=== PATIENT | female | born 1945 | race American Indian/Alaskan Native ===

== ENCOUNTER 2017-05-14 08:04 | Day surgery (SDC) | payer OTHER ==
[2017-05-12 12:05] LABS: BASOPHILS ABSOLUTE AUTO 0.02 K/mm3 (0.00-0.23); BASOPHILS PERCENT AUTO 1 % (0-2); EOSINOPHILS ABSOLUTE AUTO 0.08 K/mm3 (0.00-0.68); EOSINOPHILS PERCENT AUTO 4 % (0-6); Hematocrit 19.7 % (33.0-51.0); Hemoglobin 6.5 g/dL (11.5-16.0); IMMATURE GRAN ABSOLUTE AUTO 0.01 K/mm3 (0.00-0.10); IMMATURE GRAN PERCENT AUTO 1 % (0-1); LYMPHOCYTES ABSOLUTE AUTO 0.58 K/mm3 (0.84-5.20); LYMPHOCYTES PERCENT AUTO 27 % (21-46); MONOCYTES ABSOLUTE AUTO 0.12 K/mm3 (0.16-1.47); MONOCYTES PERCENT AUTO 6 % (4-13); Mean Corpuscular HGB 28.8 pg (26.0-34.0); NEUTROPHILS ABSOLUTE AUTO 1.35 K/mm3 (1.96-9.15); NEUTROPHILS PERCENT AUTO 62 % (41-73); Platelet Count 364 K/mm3 (150-400); Red Blood Cell Count 2.26 M/mm3 (3.80-5.20); White Blood Cell Count 2.16 K/mm3 (4.00-11.30)
[2017-05-12 12:10] LABS: Mean Corpuscular Volume 87 fL (80-100)
[~2017-05-14 08:04] MED LIST: ASPI81CH PO; Aspirin EC81 MG PO; CIPR500 PO; IBUP800 PO; Lisinopril2.5 MG PO; METF500 PO; METF500C PO; METR500 PO
== END 2017-05-14 23:13 | disposition home or self-care (01) ==
LOC: ATC 08:04
PROVIDERS: Internal Medicine Hematology & Oncology
PROC: 30233N1 Transfusion of Nonautologous Red Blood Cells into Peripheral Vein, Percutaneous Approach (ICD-10-PCS; principal; 2017-05-14)
DX: C94.6 Myelodysplastic disease, not elsewhere classified (principal); D53.9 Nutritional anemia, unspecified; D69.59 Other secondary thrombocytopenia
CPT/HCPCS: 36415; 36430; 85025; 86850; 86900; 86901; 86923; J7050; P9016

== ENCOUNTER 2017-06-11 00:59 | Day surgery (SDC) | payer OTHER ==
[2017-06-10 10:39] LABS: BASOPHILS ABSOLUTE AUTO 0.02 K/mm3 (0.00-0.23); BASOPHILS PERCENT AUTO 1 % (0-2); EOSINOPHILS ABSOLUTE AUTO 0.14 K/mm3 (0.00-0.68); EOSINOPHILS PERCENT AUTO 7 % (0-6); Hematocrit 21.8 % (33.0-51.0); Hemoglobin 6.9 g/dL (11.5-16.0); IMMATURE GRAN ABSOLUTE AUTO 0.01 K/mm3 (0.00-0.10); IMMATURE GRAN PERCENT AUTO 1 % (0-1); LYMPHOCYTES ABSOLUTE AUTO 0.56 K/mm3 (0.84-5.20); LYMPHOCYTES PERCENT AUTO 27 % (21-46); MONOCYTES ABSOLUTE AUTO 0.21 K/mm3 (0.16-1.47); MONOCYTES PERCENT AUTO 10 % (4-13); Mean Corpuscular HGB 28.5 pg (26.0-34.0); Mean Corpuscular HGB Conc 31.7 g/dL (31.5-36.5); Mean Corpuscular Volume 90 fL (80-100); Mean Platelet Volume 10.8 fL (9.1-12.4); NEUTROPHILS ABSOLUTE AUTO 1.12 K/mm3 (1.96-9.15); NEUTROPHILS PERCENT AUTO 54 % (41-73); Platelet Count 292 K/mm3 (150-400); RDW Coefficient Variation 14.2 % (11.7-14.2); RDW Standard Deviation 47.3 fL (35.1-46.3); Red Blood Cell Count 2.42 M/mm3 (3.80-5.20); White Blood Cell Count 2.06 K/mm3 (4.00-11.30)
[2017-06-10 11:20] LABS: BASOPHILS PERCENT MAN 0 % (0-2); EOSINOPHILS PERCENT MAN 10 % (0-6); LYMPHOCYTES ABSOLUTE MAN 0.39 K/mm3 (0.84-5.20); LYMPHOCYTES PERCENT MAN 19 % (21-46); MONOCYTES ABSOLUTE MAN 0.06 K/mm3 (0.16-1.47); MONOCYTES PERCENT MAN 3 % (4-13); SEG NEUTROPHILS PERCENT MAN 68 % (41-73); TOTAL CELLS COUNTED 100
== END 2017-06-11 23:07 | disposition home or self-care (01) ==
LOC: ATC 00:59
PROVIDERS: Internal Medicine Hematology & Oncology
PROC: 30233N1 Transfusion of Nonautologous Red Blood Cells into Peripheral Vein, Percutaneous Approach (ICD-10-PCS; principal; 2017-06-11)
DX: C94.6 Myelodysplastic disease, not elsewhere classified (principal); D69.59 Other secondary thrombocytopenia; D53.9 Nutritional anemia, unspecified
CPT/HCPCS: 36415; 36430; 85025; 86850; 86900; 86901; 86923; J7050; P9016

== ENCOUNTER 2017-06-27 00:51 | Day surgery (SDC) | payer OTHER | END 2017-06-27 12:37 | disposition home or self-care (01) | LOC: ATC 00:51 | PROC: 30233N1 Transfusion of Nonautologous Red Blood Cells into Peripheral Vein, Percutaneous Approach (ICD-10-PCS; principal; 2017-06-27) | DX: D53.9 Nutritional anemia, unspecified (principal); D46.9 Myelodysplastic syndrome, unspecified; D63.8 Anemia in other chronic diseases classified elsewhere; E11.9 Type 2 diabetes mellitus without complications; I10 Essential (primary) hypertension; Z79.899 Other long term (current) drug therapy; Z79.84 Long term (current) use of oral hypoglycemic drugs; Z86.12 Personal history of poliomyelitis; Z87.891 Personal history of nicotine dependence | CPT/HCPCS: 36430; 86850; 86900; 86901; 86923; J7030; P9016 ==

== ENCOUNTER 2017-07-16 00:23 | Day surgery (SDC) | payer OTHER ==
[2017-07-14 12:14] LABS: BASOPHILS ABSOLUTE AUTO 0.02 K/mm3 (0.00-0.23); BASOPHILS PERCENT AUTO 1 % (0-2); EOSINOPHILS ABSOLUTE AUTO 0.12 K/mm3 (0.00-0.68); EOSINOPHILS PERCENT AUTO 5 % (0-6); Hematocrit 20.5 % (33.0-51.0); Hemoglobin 6.5 g/dL (11.5-16.0); IMMATURE GRAN ABSOLUTE AUTO 0.01 K/mm3 (0.00-0.10); IMMATURE GRAN PERCENT AUTO 0 % (0-1); LYMPHOCYTES ABSOLUTE AUTO 0.71 K/mm3 (0.84-5.20); LYMPHOCYTES PERCENT AUTO 32 % (21-46); MONOCYTES ABSOLUTE AUTO 0.32 K/mm3 (0.16-1.47); MONOCYTES PERCENT AUTO 14 % (4-13); Mean Corpuscular HGB 28.1 pg (26.0-34.0); Mean Corpuscular HGB Conc 31.7 g/dL (31.5-36.5); Mean Corpuscular Volume 89 fL (80-100); Mean Platelet Volume 11.5 fL (9.1-12.4); NEUTROPHILS ABSOLUTE AUTO 1.06 K/mm3 (1.96-9.15); NEUTROPHILS PERCENT AUTO 47 % (41-73); Platelet Count 248 K/mm3 (150-400); RDW Coefficient Variation 13.7 % (11.7-14.2); RDW Standard Deviation 44.8 fL (35.1-46.3); Red Blood Cell Count 2.31 M/mm3 (3.80-5.20); White Blood Cell Count 2.24 K/mm3 (4.00-11.30)
== END 2017-07-16 17:50 | disposition home or self-care (01) ==
LOC: LAB 00:23
PROVIDERS: Internal Medicine Hematology & Oncology
PROC: 30233N1 Transfusion of Nonautologous Red Blood Cells into Peripheral Vein, Percutaneous Approach (ICD-10-PCS; principal; 2017-07-16)
DX: C94.6 Myelodysplastic disease, not elsewhere classified (principal); D53.9 Nutritional anemia, unspecified; D69.59 Other secondary thrombocytopenia
CPT/HCPCS: 36415; 36430; 85025; 86850; 86900; 86901; 86923; J7030; P9016

== ENCOUNTER 2017-07-28 09:34 | Day surgery (SDC) | payer OTHER ==
[2017-07-28 08:22] LABS: BASOPHILS ABSOLUTE AUTO 0.02 K/mm3 (0.00-0.23); BASOPHILS PERCENT AUTO 1 % (0-2); EOSINOPHILS ABSOLUTE AUTO 0.13 K/mm3 (0.00-0.68); EOSINOPHILS PERCENT AUTO 6 % (0-6); Hematocrit 21.6 % (33.0-51.0); Hemoglobin 6.7 g/dL (11.5-16.0); IMMATURE GRAN ABSOLUTE AUTO 0.01 K/mm3 (0.00-0.10); IMMATURE GRAN PERCENT AUTO 1 % (0-1); LYMPHOCYTES ABSOLUTE AUTO 0.65 K/mm3 (0.84-5.20); LYMPHOCYTES PERCENT AUTO 32 % (21-46); MONOCYTES ABSOLUTE AUTO 0.25 K/mm3 (0.16-1.47); MONOCYTES PERCENT AUTO 12 % (4-13); Mean Corpuscular HGB 27.9 pg (26.0-34.0); Mean Corpuscular Volume 90 fL (80-100); Mean Platelet Volume 11.8 fL (9.1-12.4); NEUTROPHILS ABSOLUTE AUTO 0.97 K/mm3 (1.96-9.15); NEUTROPHILS PERCENT AUTO 48 % (41-73); Platelet Count 296 K/mm3 (150-400); RDW Coefficient Variation 13.7 % (11.7-14.2); RDW Standard Deviation 45.4 fL (35.1-46.3); White Blood Cell Count 2.03 K/mm3 (4.00-11.30)
== END 2017-07-28 18:10 | disposition home or self-care (01) ==
LOC: LAB 09:34
PROVIDERS: Internal Medicine Hematology & Oncology
DX: D53.9 Nutritional anemia, unspecified (principal); C94.6 Myelodysplastic disease, not elsewhere classified; D69.59 Other secondary thrombocytopenia
CPT/HCPCS: 36415; 36430; 85025; 86850; 86900; 86901; 86923; J7030; P9016

== ENCOUNTER 2017-08-18 10:40 | Day surgery (SDC) | payer OTHER ==
[2017-08-18 08:47] LABS: BASOPHILS ABSOLUTE AUTO 0.01 K/mm3 (0.00-0.23); BASOPHILS PERCENT AUTO 1 % (0-2); EOSINOPHILS ABSOLUTE AUTO 0.06 K/mm3 (0.00-0.68); EOSINOPHILS PERCENT AUTO 4 % (0-6); Hematocrit 19.6 % (33.0-51.0); Hemoglobin 6.1 g/dL (11.5-16.0); IMMATURE GRAN PERCENT AUTO 0 % (0-1); LYMPHOCYTES ABSOLUTE AUTO 0.59 K/mm3 (0.84-5.20); LYMPHOCYTES PERCENT AUTO 35 % (21-46); MONOCYTES PERCENT AUTO 18 % (4-13); Mean Corpuscular HGB 27.1 pg (26.0-34.0); Mean Corpuscular HGB Conc 31.1 g/dL (31.5-36.5); Mean Corpuscular Volume 87 fL (80-100); Mean Platelet Volume 11.2 fL (9.1-12.4); NEUTROPHILS ABSOLUTE AUTO 0.72 K/mm3 (1.96-9.15); NEUTROPHILS PERCENT AUTO 43 % (41-73); Platelet Count 216 K/mm3 (150-400); RDW Coefficient Variation 13.5 % (11.7-14.2); Red Blood Cell Count 2.25 M/mm3 (3.80-5.20); White Blood Cell Count 1.68 K/mm3 (4.00-11.30)
== END 2017-08-18 17:50 | disposition home or self-care (01) ==
LOC: LAB 10:40
PROVIDERS: Internal Medicine Hematology & Oncology
PROC: 30233N1 Transfusion of Nonautologous Red Blood Cells into Peripheral Vein, Percutaneous Approach (ICD-10-PCS; principal; 2017-08-18)
DX: C94.6 Myelodysplastic disease, not elsewhere classified (principal); D53.9 Nutritional anemia, unspecified; D69.59 Other secondary thrombocytopenia
CPT/HCPCS: 36415; 36430; 85025; 86850; 86900; 86901; 86923; J7030; P9016

== ENCOUNTER 2017-08-25 13:09 | Day surgery (SDC) | payer OTHER ==
[2017-08-25 11:12] LABS: BASOPHILS ABSOLUTE AUTO 0.01 K/mm3 (0.00-0.23); BASOPHILS PERCENT AUTO 1 % (0-2); EOSINOPHILS ABSOLUTE AUTO 0.14 K/mm3 (0.00-0.68); EOSINOPHILS PERCENT AUTO 7 % (0-6); Hematocrit 22.9 % (33.0-51.0); Hemoglobin 7.3 g/dL (11.5-16.0); IMMATURE GRAN ABSOLUTE AUTO 0.01 K/mm3 (0.00-0.10); IMMATURE GRAN PERCENT AUTO 1 % (0-1); LYMPHOCYTES ABSOLUTE AUTO 0.64 K/mm3 (0.84-5.20); LYMPHOCYTES PERCENT AUTO 30 % (21-46); MONOCYTES PERCENT AUTO 14 % (4-13); Mean Corpuscular HGB 29.2 pg (26.0-34.0); Mean Corpuscular HGB Conc 31.9 g/dL (31.5-36.5); Mean Platelet Volume 11.2 fL (9.1-12.4); NEUTROPHILS ABSOLUTE AUTO 1.07 K/mm3 (1.96-9.15); NEUTROPHILS PERCENT AUTO 49 % (41-73); Platelet Count 228 K/mm3 (150-400); RDW Standard Deviation 50.9 fL (35.1-46.3); White Blood Cell Count 2.17 K/mm3 (4.00-11.30)
[2017-08-25 11:16] LABS: Mean Corpuscular Volume 92 fL (80-100)
[2017-08-25] MEDS ORDERED: Percocet 5-3251 EACH PO (16:44)
== END 2017-08-25 18:10 | disposition home or self-care (01) ==
LOC: ATC 13:09
PROVIDERS: Internal Medicine Hematology & Oncology
DX: D46.1 Refractory anemia with ring sideroblasts (principal)
CPT/HCPCS: 36415; 36430; 85025; 86850; 86900; 86901; 86923; J7030; P9016

== ENCOUNTER 2017-09-08 13:09 | Day surgery (SDC) | payer OTHER ==
[2017-09-08 11:26] LABS: BASOPHILS ABSOLUTE AUTO 0.02 K/mm3 (0.00-0.23); BASOPHILS PERCENT AUTO 1 % (0-2); EOSINOPHILS ABSOLUTE AUTO 0.09 K/mm3 (0.00-0.68); EOSINOPHILS PERCENT AUTO 4 % (0-6); Hematocrit 23.3 % (33.0-51.0); Hemoglobin 7.3 g/dL (11.5-16.0); IMMATURE GRAN PERCENT AUTO 0 % (0-1); LYMPHOCYTES ABSOLUTE AUTO 0.82 K/mm3 (0.84-5.20); LYMPHOCYTES PERCENT AUTO 37 % (21-46); MONOCYTES ABSOLUTE AUTO 0.37 K/mm3 (0.16-1.47); MONOCYTES PERCENT AUTO 17 % (4-13); Mean Corpuscular HGB 28.5 pg (26.0-34.0); Mean Corpuscular HGB Conc 31.3 g/dL (31.5-36.5); Mean Corpuscular Volume 91 fL (80-100); NEUTROPHILS ABSOLUTE AUTO 0.92 K/mm3 (1.96-9.15); NEUTROPHILS PERCENT AUTO 41 % (41-73); Platelet Count 251 K/mm3 (150-400); RDW Coefficient Variation 14.3 % (11.7-14.2); RDW Standard Deviation 47.7 fL (35.1-46.3); Red Blood Cell Count 2.56 M/mm3 (3.80-5.20); White Blood Cell Count 2.22 K/mm3 (4.00-11.30)
[2017-09-08 11:45] LABS: Alanine Aminotransfer (ALT/SGP 40 U/L (12-78); Albumin, Blood 3.6 g/dL (3.4-5.0); Albumin/Globulin Ratio 0.9 (0.8-1.8); Alk Phos 130 U/L (50-136); Anion Gap 9 mmol/L (6-16); Aspartate Aminotrans (AST/SGOT 20 U/L (12-37); Bilirubin, Total 0.5 mg/dL (0.1-1.0); Blood Urea Nitrogen 10 mg/dL (8-24); Bun/Creatinine Ratio 30.7 (12.0-20.0); CO2, Blood 27 mmol/L (21-32); Calcium, Blood 8.8 mg/dL (8.5-10.1); Chloride, Blood 101 mmol/L (98-108); Creatinine, Blood 0.33 mg/dL (0.40-1.00); Globulin, Blood 4.1 g/dL (2.2-4.0); Glomerular Filtration Rate >60 (60-); Glucose, Blood 148 mg/dL (70-99); Potassium, Blood 4.4 mmol/L (3.5-5.5); Sodium, Blood 137 mmol/L (136-145); Total Protein, Blood 7.7 g/dL (6.4-8.2)
[~2017-09-08 13:09] MED LIST changes: -METF500C PO; +Percocet 5-3251 EACH PO
== END 2017-09-08 18:06 | disposition home or self-care (01) ==
LOC: ATC 13:09 → EDSTATUS 09-08 10:00 → LAB FUT 09-08 10:00
DX: C94.6 Myelodysplastic disease, not elsewhere classified (principal); K92.2 Gastrointestinal hemorrhage, unspecified
CPT/HCPCS: 36415; 36430; 80053; 85025; 86850; 86900; 86901; 86923; J7030; P9016

== ENCOUNTER 2017-09-23 00:38 | Day surgery (SDC) | payer OTHER ==
[2017-09-22 11:03] LABS: BASOPHILS ABSOLUTE AUTO 0.01 K/mm3 (0.00-0.23); BASOPHILS PERCENT AUTO 0 % (0-2); EOSINOPHILS ABSOLUTE AUTO 0.13 K/mm3 (0.00-0.68); EOSINOPHILS PERCENT AUTO 5 % (0-6); Hematocrit 23.1 % (33.0-51.0); Hemoglobin 7.3 g/dL (11.5-16.0); IMMATURE GRAN ABSOLUTE AUTO 0.01 K/mm3 (0.00-0.10); IMMATURE GRAN PERCENT AUTO 0 % (0-1); LYMPHOCYTES PERCENT AUTO 31 % (21-46); MONOCYTES ABSOLUTE AUTO 0.46 K/mm3 (0.16-1.47); MONOCYTES PERCENT AUTO 18 % (4-13); Mean Corpuscular HGB 28.1 pg (26.0-34.0); Mean Corpuscular HGB Conc 31.6 g/dL (31.5-36.5); Mean Corpuscular Volume 89 fL (80-100); Mean Platelet Volume 10.9 fL (9.1-12.4); NEUTROPHILS ABSOLUTE AUTO 1.15 K/mm3 (1.96-9.15); NEUTROPHILS PERCENT AUTO 45 % (41-73); Platelet Count 230 K/mm3 (150-400); RDW Coefficient Variation 13.5 % (11.7-14.2); RDW Standard Deviation 44.2 fL (35.1-46.3); White Blood Cell Count 2.56 K/mm3 (4.00-11.30)
[2017-09-22 11:19] LABS: Alanine Aminotransfer (ALT/SGP 47 U/L (12-78); Albumin, Blood 3.7 g/dL (3.4-5.0); Alk Phos 125 U/L (50-136); Anion Gap 5 mmol/L (6-16); Aspartate Aminotrans (AST/SGOT 27 U/L (12-37); Bilirubin, Total 0.2 mg/dL (0.1-1.0); Blood Urea Nitrogen 13 mg/dL (8-24); Bun/Creatinine Ratio 37.7 (12.0-20.0); CO2, Blood 28 mmol/L (21-32); Calcium, Blood 8.8 mg/dL (8.5-10.1); Chloride, Blood 103 mmol/L (98-108); Creatinine, Blood 0.35 mg/dL (0.40-1.00); Globulin, Blood 3.6 g/dL (2.2-4.0); Glomerular Filtration Rate >60 (60-); Glucose, Blood 293 mg/dL (70-99); Potassium, Blood 4.5 mmol/L (3.5-5.5); Sodium, Blood 136 mmol/L (136-145); Total Protein, Blood 7.3 g/dL (6.4-8.2)
== END 2017-09-23 11:32 | disposition home or self-care (01) ==
LOC: ATC 00:38
DX: C94.6 Myelodysplastic disease, not elsewhere classified (principal); K92.2 Gastrointestinal hemorrhage, unspecified; D72.819 Decreased white blood cell count, unspecified; D69.59 Other secondary thrombocytopenia; E11.65 Type 2 diabetes mellitus with hyperglycemia; I10 Essential (primary) hypertension; Z79.84 Long term (current) use of oral hypoglycemic drugs
CPT/HCPCS: 36415; 36430; 80053; 85025; 86850; 86900; 86901; 86923; J7030; P9016

== ENCOUNTER 2017-10-06 11:22 | Day surgery (SDC) | payer OTHER ==
[2017-10-06 09:02] LABS: Hematocrit 22.4 % (33.0-51.0); Mean Corpuscular HGB 27.9 pg (26.0-34.0); Mean Corpuscular HGB Conc 31.3 g/dL (31.5-36.5); Mean Corpuscular Volume 89 fL (80-100); Mean Platelet Volume 11.1 fL (9.1-12.4); Platelet Count 251 K/mm3 (150-400); RDW Coefficient Variation 13.5 % (11.7-14.2); RDW Standard Deviation 44.2 fL (35.1-46.3); Red Blood Cell Count 2.51 M/mm3 (3.80-5.20); White Blood Cell Count 2.03 K/mm3 (4.00-11.30)
[2017-10-06 09:45] LABS: BAND PERCENT MAN 10 % (0-8); BASOPHILS PERCENT MAN 0 % (0-2); EOSINOPHILS ABSOLUTE MAN 0.08 K/mm3 (0.00-0.68); EOSINOPHILS PERCENT MAN 4 % (0-6); LYMPHOCYTES % ATYPICAL MANUAL 1 % (0-0); LYMPHOCYTES ABSOLUTE MAN 0.54 K/mm3 (0.84-5.20); LYMPHOCYTES PERCENT MAN 26 % (21-46); METAMYELOCYTE ABSOLUTE MAN 0.08 K/mm3 (0.00-0.00); METAMYELOCYTE PERCENT MAN 4 % (0-0); MONOCYTES ABSOLUTE MAN 0.04 K/mm3 (0.16-1.47); MONOCYTES PERCENT MAN 2 % (4-13); NEUTROPHILS ABSOLUTE MAN 1.27 K/mm3 (1.96-9.15); SEG NEUTROPHILS PERCENT MAN 53 % (41-73); TOTAL CELLS COUNTED 100
== END 2017-10-06 22:44 | disposition home or self-care (01) ==
LOC: ATC 11:22 → EDSTATUS 10-02 19:30 → LAB FUT 10-02 19:30
DX: C94.6 Myelodysplastic disease, not elsewhere classified (principal); D69.59 Other secondary thrombocytopenia; R53.83 Other fatigue; E55.9 Vitamin D deficiency, unspecified; Z87.891 Personal history of nicotine dependence; E11.65 Type 2 diabetes mellitus with hyperglycemia; I10 Essential (primary) hypertension
CPT/HCPCS: 36415; 36430; 82306; 84443; 85025; 86850; 86900; 86901; 86923; J7030; P9016

== ENCOUNTER 2017-10-17 08:34 | Day surgery (SDC) | payer OTHER ==
[2017-10-16 17:32] LABS: BASOPHILS ABSOLUTE AUTO 0.01 K/mm3 (0.00-0.23); BASOPHILS PERCENT AUTO 0 % (0-2); EOSINOPHILS ABSOLUTE AUTO 0.05 K/mm3 (0.00-0.68); EOSINOPHILS PERCENT AUTO 2 % (0-6); Hematocrit 22.5 % (33.0-51.0); Hemoglobin 7.2 g/dL (11.5-16.0); IMMATURE GRAN ABSOLUTE AUTO 0.01 K/mm3 (0.00-0.10); IMMATURE GRAN PERCENT AUTO 0 % (0-1); LYMPHOCYTES ABSOLUTE AUTO 0.82 K/mm3 (0.84-5.20); LYMPHOCYTES PERCENT AUTO 35 % (21-46); MONOCYTES ABSOLUTE AUTO 0.55 K/mm3 (0.16-1.47); MONOCYTES PERCENT AUTO 23 % (4-13); Mean Corpuscular HGB 28.7 pg (26.0-34.0); Mean Corpuscular Volume 90 fL (80-100); Mean Platelet Volume 12.6 fL (9.1-12.4); NEUTROPHILS ABSOLUTE AUTO 0.93 K/mm3 (1.96-9.15); NEUTROPHILS PERCENT AUTO 39 % (41-73); Platelet Count 128 K/mm3 (150-400); RDW Coefficient Variation 13.6 % (11.7-14.2); RDW Standard Deviation 44.3 fL (35.1-46.3); Red Blood Cell Count 2.51 M/mm3 (3.80-5.20); White Blood Cell Count 2.37 K/mm3 (4.00-11.30)
== END 2017-10-17 23:26 | disposition home or self-care (01) ==
LOC: ATC 08:34 → EDSTATUS 08:37 → ATC 23:26
DX: C94.6 Myelodysplastic disease, not elsewhere classified (principal); K92.2 Gastrointestinal hemorrhage, unspecified; D69.59 Other secondary thrombocytopenia; Z79.84 Long term (current) use of oral hypoglycemic drugs; Z87.891 Personal history of nicotine dependence; E11.65 Type 2 diabetes mellitus with hyperglycemia; I10 Essential (primary) hypertension
CPT/HCPCS: 36415; 36430; 85025; 86850; 86900; 86901; 86923; J7030; P9016

== ENCOUNTER 2017-11-04 07:47 | Day surgery (SDC) | payer OTHER ==
[2017-11-04 09:08] LABS: Hematocrit 24.3 % (33.0-51.0); Hemoglobin 7.9 g/dL (11.5-16.0)
== END 2017-11-04 12:48 | disposition home or self-care (01) ==
LOC: ATC 07:47
DX: D64.9 Anemia, unspecified (principal)
CPT/HCPCS: 36430; 85014; 85018; 86850; 86900; 86901; 86923; J7030; P9016

== ENCOUNTER 2017-11-14 00:19 | Day surgery (SDC) | payer OTHER ==
[2017-11-14] MEDS ORDERED: ERGO400 PO (15:22)
== END 2017-11-14 17:30 | disposition home or self-care (01) ==
LOC: ATC 00:19
DX: D72.819 Decreased white blood cell count, unspecified (principal); D69.59 Other secondary thrombocytopenia; Z87.891 Personal history of nicotine dependence
CPT/HCPCS: 36415; 36430; 86850; 86900; 86901; 86923; J7030; P9016

== ENCOUNTER 2017-11-17 12:53 | Day surgery (SDC) | payer OTHER ==
[2017-11-17 10:11] LABS: Hemoglobin 7.6 g/dL (11.5-16.0); Mean Corpuscular HGB 29.2 pg (26.0-34.0); Mean Corpuscular Volume 89 fL (80-100); Mean Platelet Volume 11.3 fL (9.1-12.4); Platelet Count 172 K/mm3 (150-400); RDW Coefficient Variation 13.6 % (11.7-14.2); RDW Standard Deviation 44.1 fL (35.1-46.3); White Blood Cell Count 2.07 K/mm3 (4.00-11.30)
[2017-11-17 10:46] LABS: BAND PERCENT MAN 2 % (0-8); BASOPHILS PERCENT MAN 0 % (0-2); EOSINOPHILS ABSOLUTE MAN 0.06 K/mm3 (0.00-0.68); EOSINOPHILS PERCENT MAN 3 % (0-6); LYMPHOCYTES ABSOLUTE MAN 0.45 K/mm3 (0.84-5.20); LYMPHOCYTES PERCENT MAN 22 % (21-46); MONOCYTES ABSOLUTE MAN 0.41 K/mm3 (0.16-1.47); MONOCYTES PERCENT MAN 20 % (4-13); NEUTROPHILS ABSOLUTE MAN 1.13 K/mm3 (1.96-9.15); SEG NEUTROPHILS PERCENT MAN 53 % (41-73); TOTAL CELLS COUNTED 100
[~2017-11-17 12:53] MED LIST changes: +ERGO400 PO
[2017-11-17] MEDS ORDERED: [UNRECOGNIZED DRUG - OTHER] PO (14:16)
[2017-11-17] MEDS ORDERED: ABAT250V (14:16)
== END 2017-11-17 17:36 | disposition home or self-care (01) ==
LOC: ATC 12:53 → EDSTATUS 12:53 → LAB 12:53 → ATC 17:36
DX: D46.9 Myelodysplastic syndrome, unspecified (principal); D69.59 Other secondary thrombocytopenia; K92.2 Gastrointestinal hemorrhage, unspecified; Z87.891 Personal history of nicotine dependence; E11.65 Type 2 diabetes mellitus with hyperglycemia; Z79.84 Long term (current) use of oral hypoglycemic drugs; I10 Essential (primary) hypertension
CPT/HCPCS: 36415; 36430; 85025; 86850; 86900; 86901; 86923; J7030; P9016

== ENCOUNTER 2017-12-01 11:50 | Day surgery (SDC) | payer OTHER ==
[2017-12-01 10:09] LABS: BASOPHILS PERCENT AUTO 0 % (0-2); EOSINOPHILS ABSOLUTE AUTO 0.02 K/mm3 (0.00-0.68); EOSINOPHILS PERCENT AUTO 1 % (0-6); Hematocrit 22.5 % (33.0-51.0); Hemoglobin 7.2 g/dL (11.5-16.0); IMMATURE GRAN ABSOLUTE AUTO 0.01 K/mm3 (0.00-0.10); IMMATURE GRAN PERCENT AUTO 1 % (0-1); LYMPHOCYTES ABSOLUTE AUTO 0.44 K/mm3 (0.84-5.20); LYMPHOCYTES PERCENT AUTO 26 % (21-46); MONOCYTES ABSOLUTE AUTO 0.42 K/mm3 (0.16-1.47); MONOCYTES PERCENT AUTO 25 % (4-13); Mean Corpuscular HGB 28.6 pg (26.0-34.0); Mean Corpuscular Volume 89 fL (80-100); Mean Platelet Volume 11.5 fL (9.1-12.4); NEUTROPHILS ABSOLUTE AUTO 0.82 K/mm3 (1.96-9.15); NEUTROPHILS PERCENT AUTO 48 % (41-73); Platelet Count 176 K/mm3 (150-400); RDW Coefficient Variation 13.3 % (11.7-14.2); RDW Standard Deviation 43.8 fL (35.1-46.3); Red Blood Cell Count 2.52 M/mm3 (3.80-5.20); White Blood Cell Count 1.71 K/mm3 (4.00-11.30)
[~2017-12-01 11:50] MED LIST changes: +ABAT250V; +[UNRECOGNIZED DRUG - OTHER] PO
== END 2017-12-01 22:52 | disposition home or self-care (01) ==
LOC: ATC 11:50 → LAB 11:50 → EDSTATUS 11:51 → ATC 22:52
DX: D72.819 Decreased white blood cell count, unspecified (principal); D69.59 Other secondary thrombocytopenia; E11.9 Type 2 diabetes mellitus without complications; Z79.84 Long term (current) use of oral hypoglycemic drugs
CPT/HCPCS: 36415; 36430; 85025; 86850; 86900; 86901; 86923; 96372; J0885; J7030; P9016

== ENCOUNTER 2017-12-26 00:29 | Day surgery (SDC) | payer OTHER ==
[2017-12-25 11:03] LABS: BASOPHILS ABSOLUTE AUTO 0.01 K/mm3 (0.00-0.23); BASOPHILS PERCENT AUTO 0 % (0-2); EOSINOPHILS ABSOLUTE AUTO 0.01 K/mm3 (0.00-0.68); EOSINOPHILS PERCENT AUTO 0 % (0-6); Hematocrit 23.2 % (33.0-51.0); Hemoglobin 7.5 g/dL (11.5-16.0); IMMATURE GRAN ABSOLUTE AUTO 0.02 K/mm3 (0.00-0.10); IMMATURE GRAN PERCENT AUTO 1 % (0-1); LYMPHOCYTES PERCENT AUTO 25 % (21-46); MONOCYTES ABSOLUTE AUTO 0.98 K/mm3 (0.16-1.47); MONOCYTES PERCENT AUTO 35 % (4-13); Mean Corpuscular HGB 28.5 pg (26.0-34.0); Mean Corpuscular HGB Conc 32.3 g/dL (31.5-36.5); Mean Platelet Volume 11.7 fL (9.1-12.4); NEUTROPHILS ABSOLUTE AUTO 1.07 K/mm3 (1.96-9.15); NEUTROPHILS PERCENT AUTO 38 % (41-73); Platelet Count 159 K/mm3 (150-400); RDW Coefficient Variation 13.2 % (11.7-14.2); Red Blood Cell Count 2.63 M/mm3 (3.80-5.20); White Blood Cell Count 2.79 K/mm3 (4.00-11.30)
[2017-12-25 11:05] LABS: Mean Corpuscular Volume 88 fL (80-100)
[2017-12-26] MEDS ORDERED: Procrit40000 UNIT INJ (15:08)
== END 2017-12-26 18:23 | disposition home or self-care (01) ==
LOC: ATC 00:29
DX: C94.6 Myelodysplastic disease, not elsewhere classified (principal); E11.9 Type 2 diabetes mellitus without complications
CPT/HCPCS: 36415; 85025; 86850; 86900; 86901; 86923; J7030; P9016

== ENCOUNTER 2018-01-12 00:16 | Day surgery (SDC) | payer OTHER ==
[2018-01-08 11:02] LABS: Hematocrit 24.2 % (33.0-51.0); Mean Corpuscular HGB 29.9 pg (26.0-34.0); Mean Corpuscular HGB Conc 33.1 g/dL (31.5-36.5); Mean Corpuscular Volume 90 fL (80-100); Mean Platelet Volume 11.4 fL (9.1-12.4); Platelet Count 132 K/mm3 (150-400); RDW Coefficient Variation 13.4 % (11.7-14.2); RDW Standard Deviation 44.5 fL (35.1-46.3); Red Blood Cell Count 2.68 M/mm3 (3.80-5.20); White Blood Cell Count 2.96 K/mm3 (4.00-11.30)
[2018-01-08 11:35] LABS: BASOPHILS PERCENT MAN 0 % (0-2); EOSINOPHILS ABSOLUTE MAN 0.02 K/mm3 (0.00-0.68); EOSINOPHILS PERCENT MAN 1 % (0-6); LYMPHOCYTES PERCENT MAN 34 % (21-46); MONOCYTES ABSOLUTE MAN 0.59 K/mm3 (0.16-1.47); MONOCYTES PERCENT MAN 20 % (4-13); NEUTROPHILS ABSOLUTE MAN 1.33 K/mm3 (1.96-9.15); SEG NEUTROPHILS PERCENT MAN 45 % (41-73); TOTAL CELLS COUNTED 100
[~2018-01-12 00:16] MED LIST changes: +Procrit40000 UNIT INJ
[2018-01-12 07:36] LABS: BASOPHILS ABSOLUTE AUTO 0.01 K/mm3 (0.00-0.23); BASOPHILS PERCENT AUTO 0 % (0-2); EOSINOPHILS ABSOLUTE AUTO 0.01 K/mm3 (0.00-0.68); EOSINOPHILS PERCENT AUTO 0 % (0-6); Hemoglobin 6.8 g/dL (11.5-16.0); IMMATURE GRAN ABSOLUTE AUTO 0.02 K/mm3 (0.00-0.10); IMMATURE GRAN PERCENT AUTO 1 % (0-1); LYMPHOCYTES ABSOLUTE AUTO 0.48 K/mm3 (0.84-5.20); LYMPHOCYTES PERCENT AUTO 19 % (21-46); MONOCYTES ABSOLUTE AUTO 0.91 K/mm3 (0.16-1.47); MONOCYTES PERCENT AUTO 36 % (4-13); Mean Corpuscular HGB 29.3 pg (26.0-34.0); Mean Corpuscular HGB Conc 32.4 g/dL (31.5-36.5); Mean Corpuscular Volume 91 fL (80-100); Mean Platelet Volume 11.9 fL (9.1-12.4); NEUTROPHILS PERCENT AUTO 43 % (41-73); Platelet Count 126 K/mm3 (150-400); RDW Coefficient Variation 13.4 % (11.7-14.2); RDW Standard Deviation 44.7 fL (35.1-46.3); Red Blood Cell Count 2.32 M/mm3 (3.80-5.20); White Blood Cell Count 2.53 K/mm3 (4.00-11.30)
== END 2018-01-12 12:16 | disposition home or self-care (01) ==
LOC: LAB 00:16 → ATC 00:16
DX: C94.6 Myelodysplastic disease, not elsewhere classified (principal); E11.9 Type 2 diabetes mellitus without complications
CPT/HCPCS: 36415; 36430; 85025; 86850; 86900; 86901; 86923; J7030; P9016

== ENCOUNTER 2018-02-06 07:27 | Day surgery (SDC) | payer OTHER ==
[2018-02-04 08:41] LABS: BASOPHILS ABSOLUTE AUTO 0.01 K/mm3 (0.00-0.23); BASOPHILS PERCENT AUTO 0 % (0-2); EOSINOPHILS ABSOLUTE AUTO 0.01 K/mm3 (0.00-0.68); EOSINOPHILS PERCENT AUTO 0 % (0-6); Hematocrit 23.6 % (33.0-51.0); Hemoglobin 7.5 g/dL (11.5-16.0); IMMATURE GRAN ABSOLUTE AUTO 0.03 K/mm3 (0.00-0.10); IMMATURE GRAN PERCENT AUTO 1 % (0-1); LYMPHOCYTES PERCENT AUTO 22 % (21-46); MONOCYTES ABSOLUTE AUTO 0.96 K/mm3 (0.16-1.47); MONOCYTES PERCENT AUTO 36 % (4-13); Mean Corpuscular HGB 28.5 pg (26.0-34.0); Mean Corpuscular HGB Conc 31.8 g/dL (31.5-36.5); Mean Corpuscular Volume 90 fL (80-100); Mean Platelet Volume 12.1 fL (9.1-12.4); NEUTROPHILS ABSOLUTE AUTO 1.07 K/mm3 (1.96-9.15); NEUTROPHILS PERCENT AUTO 40 % (41-73); Platelet Count 106 K/mm3 (150-400); RDW Coefficient Variation 13.4 % (11.7-14.2); RDW Standard Deviation 44.2 fL (35.1-46.3); Red Blood Cell Count 2.63 M/mm3 (3.80-5.20); White Blood Cell Count 2.68 K/mm3 (4.00-11.30)
[2018-02-04 08:56] LABS: Percent Saturation 96.9 % (15.0-50.0)
== END 2018-02-06 22:46 | disposition home or self-care (01) ==
LOC: ATC 07:27 → EDSTATUS 02-02 12:45 → LAB FUT 02-02 12:45
DX: C94.6 Myelodysplastic disease, not elsewhere classified (principal); E11.9 Type 2 diabetes mellitus without complications; D64.9 Anemia, unspecified
CPT/HCPCS: 36415; 36430; 83036; 83540; 83550; 85025; 86850; 86900; 86901; 86923; J7030; P9016

== ENCOUNTER 2018-02-23 10:35 | Day surgery (SDC) | payer OTHER ==
[2018-02-23 11:37] LABS: BASOPHILS ABSOLUTE AUTO 0.01 K/mm3 (0.00-0.23); BASOPHILS PERCENT AUTO 0 % (0-2); EOSINOPHILS ABSOLUTE AUTO 0.01 K/mm3 (0.00-0.68); EOSINOPHILS PERCENT AUTO 0 % (0-6); Hematocrit 23.1 % (33.0-51.0); Hemoglobin 7.4 g/dL (11.5-16.0); IMMATURE GRAN ABSOLUTE AUTO 0.02 K/mm3 (0.00-0.10); IMMATURE GRAN PERCENT AUTO 1 % (0-1); LYMPHOCYTES ABSOLUTE AUTO 0.76 K/mm3 (0.84-5.20); LYMPHOCYTES PERCENT AUTO 24 % (21-46); MONOCYTES ABSOLUTE AUTO 1.02 K/mm3 (0.16-1.47); MONOCYTES PERCENT AUTO 32 % (4-13); Mean Corpuscular Volume 91 fL (80-100); Mean Platelet Volume 12.4 fL (9.1-12.4); NEUTROPHILS ABSOLUTE AUTO 1.35 K/mm3 (1.96-9.15); NEUTROPHILS PERCENT AUTO 43 % (41-73); Platelet Count 112 K/mm3 (150-400); RDW Coefficient Variation 13.9 % (11.7-14.2); RDW Standard Deviation 46.5 fL (35.1-46.3); Red Blood Cell Count 2.55 M/mm3 (3.80-5.20); White Blood Cell Count 3.17 K/mm3 (4.00-11.30)
== END 2018-02-27 22:38 | disposition home or self-care (01) ==
LOC: ATC 10:35 → LAB SHORT 10:35 → ATC 02-24 12:02 → EDSTATUS 02-24 14:02 → ATC 02-25 10:35
DX: C94.6 Myelodysplastic disease, not elsewhere classified (principal)
CPT/HCPCS: 36415; 85025; 86850; 86900; 86901; 86923; J7050

== ENCOUNTER 2018-02-25 12:16 | Day surgery (SDC) | payer OTHER | END 2018-02-25 22:43 | disposition home or self-care (01) | LOC: ATC 12:16 | DX: C94.6 Myelodysplastic disease, not elsewhere classified (principal) | CPT/HCPCS: 36415; 36430; 86850; 86900; 86901; 86923; P9016 ==

== ENCOUNTER 2018-06-03 12:33 | Observation (INO) | payer OTHER ==
[~2018-06-03] VITALS: Ht 157.5 cm; Wt 47.7 kg
[~2018-06-03 12:33] MED LIST changes: +METF500C PO
[2018-06-03 13:14] LABS: BASOPHILS ABSOLUTE AUTO 0.01 K/mm3 (0.00-0.23); BASOPHILS PERCENT AUTO 0 % (0-2); EOSINOPHILS PERCENT AUTO 0 % (0-6); Hematocrit 18.6 % (33.0-51.0); IMMATURE GRAN ABSOLUTE AUTO 0.09 K/mm3 (0.00-0.10); IMMATURE GRAN PERCENT AUTO 2 % (0-1); LYMPHOCYTES ABSOLUTE AUTO 1.04 K/mm3 (0.84-5.20); LYMPHOCYTES PERCENT AUTO 20 % (21-46); MONOCYTES ABSOLUTE AUTO 1.17 K/mm3 (0.16-1.47); MONOCYTES PERCENT AUTO 22 % (4-13); Mean Corpuscular HGB 30.6 pg (26.0-34.0); Mean Corpuscular HGB Conc 32.3 g/dL (31.5-36.5); Mean Corpuscular Volume 95 fL (80-100); Mean Platelet Volume 12.5 fL (9.1-12.4); NEUTROPHILS ABSOLUTE AUTO 2.93 K/mm3 (1.96-9.15); NEUTROPHILS PERCENT AUTO 56 % (41-73); Platelet Count 69 K/mm3 (150-400); RDW Coefficient Variation 14.8 % (11.7-14.2); RDW Standard Deviation 50.5 fL (35.1-46.3); Red Blood Cell Count 1.96 M/mm3 (3.80-5.20); White Blood Cell Count 5.24 K/mm3 (4.00-11.30)
[2018-06-03 13:25] LABS: Alanine Aminotransfer (ALT/SGP 35 U/L (12-78); Albumin/Globulin Ratio 0.7 (0.8-1.8); Alk Phos 139 U/L (50-136); Anion Gap 13 mmol/L (6-16); Aspartate Aminotrans (AST/SGOT 27 U/L (12-37); Blood Urea Nitrogen 12 mg/dL (8-24); Bun/Creatinine Ratio 30.8 (12.0-20.0); CO2, Blood 24 mmol/L (21-32); Calcium, Blood 8.7 mg/dL (8.5-10.1); Chloride, Blood 95 mmol/L (98-108); Creatinine, Blood 0.39 mg/dL (0.40-1.00); Globulin, Blood 4.1 g/dL (2.2-4.0); Glomerular Filtration Rate >60 (60-); Glucose, Blood 430 mg/dL (70-99); Potassium, Blood 4.3 mmol/L (3.5-5.5); Sodium, Blood 132 mmol/L (136-145); Total Protein, Blood 7.1 g/dL (6.4-8.2)
[2018-06-03 23:36] LABS: Source, Urine Clean Catch
[2018-06-03 23:40] LABS: Bilirubin, Urine Neg (Neg); Blood, Urine 2+ (Neg); Glucose Qualitative, Urine 4+ (Neg); Ketones, Urine 3+ (Neg); Leukocyte Esterase, Urine 2+ (Neg); Nitrite, Urine Neg (Neg); Protein, Urine 2+ (Neg); Urobilinogen, Urine NORM (Normal)
[2018-06-03 23:42] LABS: Appearance, Urine Hazy (Clear); Color, Urine Yellow (P-Yellow)
[2018-06-03 23:48] LABS: Bacteria Many /hpf; Red Blood Cells, Urine 0-2 /hpf (0-2); Squamous Epithelial Cells Few /hpf (Few)
[2018-06-04 00:37] LABS: Hematocrit 21.3 % (33.0-51.0)
[2018-06-04 04:21] LABS: Hematocrit 21.1 % (33.0-51.0)
[2018-06-04 04:44] LABS: Anion Gap 10 mmol/L (6-16); Blood Urea Nitrogen 10 mg/dL (8-24); Bun/Creatinine Ratio 30.5 (12.0-20.0); CO2, Blood 25 mmol/L (21-32); Calcium, Blood 7.4 mg/dL (8.5-10.1); Chloride, Blood 103 mmol/L (98-108); Creatinine, Blood 0.33 mg/dL (0.40-1.00); Glomerular Filtration Rate >60 (60-); Glucose, Blood 225 mg/dL (70-99); Potassium, Blood 3.6 mmol/L (3.5-5.5); Sodium, Blood 138 mmol/L (136-145)
--- NOTE | 2018-06-04 05:47 | NUR ---
SHIFT SUMMARY PT ARRIVED TO PCU AT SHIFT CHANGE. SHE WAS RECIEVING BLOOD ON ARRIVAL AND COMPLETED 2 UNITS TOTAL THIS SHIFT. THERE HAVE BEEN NO ACUTE CHANGES TO VITALS DURING THE NIGHT, INCLUDING A LOW BP ALL NIGHT. PT WAS ASYMPTOMATIC WITH THIS PRESSURE AND FOLLOWING ADMINISTRATION OF SECOND UNIT, STATED SHE FELT BETTER. SHE HAS BEEN COOPERATIVE, ALTHOUGH SHE DID HAVE SOME IRRITATION AT TIMES DURING THE NIGHT. PT HAS HER SON AT BEDSIDE AND HE IS HER PRIMARY CAREGIVER AT HOME. PT SLEPT OFF AND ON DURING THE NIGHT, DENYING ANY UNMET NEEDS. SHE HAS HER CALL LIGHT WITHIN REACH AND DEMONSTRATED APPROPRIATE USE OF IT. PT IS ABLE TO AMBULATE TO [facility] WITH SBA, THOUGH HER GAIT IT WEAK. SHE DOES NEED FWW FOR AMBULATION. PT HAS 2X SIDE RAILS IN PLACE, BED IN LOWEST POSITION AND NON SLIP SOCKS ON FOR SAFETY. SHE HAS NO BED ALARM ACTIVE, SHE HAS HER CAREGIVER AT BEDSIDE. SHE WILL CONTINUE TO BE MONITORED UNTIL HANDOFF TO DAYSHIFT RN.
[2018-06-04 11:45] LABS: Adenovirus F 40/41 Not Detected (NOT DETECT); Astrovirus Not Detected (NOT DETECT); Campylobacter Sp Not Detected (NOT DETECT); Cryptosporidium Not Detected (NOT DETECT); Cyclospora Cayetanensis Not Detected (NOT DETECT); E. Coli O157 Not Detected (NOT DETECT); Entamoeba Histolytica Not Detected (NOT DETECT); Enteroaggregative E. coli-EAEC Not Detected (NOT DETECT); Enteropathogenic E. coli-EPEC Not Detected (NOT DETECT); Enterotoxigenic E. coli-ETEC Not Detected (NOT DETECT); Giardia Lamblia Not Detected (NOT DETECT); Norovirus GI/GII Not Detected (NOT DETECT); Plesiomonas Shigelloides Not Detected (NOT DETECT); Rotavirus A Not Detected (NOT DETECT); Salmonella Sp Not Detected (NOT DETECT); Sapovirus Not Detected (NOT DETECT); Shiga Toxin-prod E. coli-STEC Not Detected (NOT DETECT); Shigella/Enteroin E. coli-EIEC Not Detected (NOT DETECT); Vibrio Cholerae Not Detected (NOT DETECT); Vibrio Sp Not Detected (NOT DETECT); Yersinia Enterocolitica Not Detected (NOT DETECT)
--- NOTE | 2018-06-04 18:35 | NUR ---
END OF SHIFT PT HAS HAD NO CHANGES TO THE ASSESSMENT, PT WAS COMPLAINED ABOUT NOT BEING ABLE TO FEED HERSELF, HOWEVER THE PT CAN FEED HERSELF BY WATCHING FROM THE DOOR, VSS AND HAVE INCREASED WITH THE UNIT OF BLOOD
[2018-06-05 06:17] LABS: Hematocrit 26.7 % (33.0-51.0); Hemoglobin 8.8 g/dL (11.5-16.0); Mean Platelet Volume 12.8 fL (9.1-12.4); RDW Coefficient Variation 14.7 % (11.7-14.2); RDW Standard Deviation 49.4 fL (35.1-46.3); Red Blood Cell Count 2.93 M/mm3 (3.80-5.20); White Blood Cell Count 3.05 K/mm3 (4.00-11.30)
[2018-06-05 06:26] LABS: Mean Corpuscular Volume 91 fL (80-100)
[2018-06-05 06:28] LABS: Platelet Count 33 K/mm3 (150-400)
--- NOTE | 2018-06-05 06:38 | NUR ---
SHIFT SUMMARY: PATIENT IS A&OX4, VS ARE STABLE, AX1 WITH FWW TO BSC, BED ALARM IS ON FOR SAFETY. H&H IS 8.8/22.7, PLATELETS ARE CRITICAL AT 33. DR WRIGHT IS NOTIFIED, NO NEW ORDERS AT THIS TIME.
[2018-06-05] MEDS ORDERED: ACET325 PO (15:20)
--- NOTE | 2018-06-05 16:26 | NUR ---
DISCHARGE PT HAS BEEN DISCHARGED HOME, VSS, PT HAS HAD ALL IV REMOVED, PT HAS NO PAIN, PT ACKNOWLEDGED DISCHARGED INSTRUCTION, PT WILL FOLLOW UP WITH PCP
== END 2018-06-05 15:40 | disposition home health service (06) ==
LOC: ER 12:33 → PCU 12:34
PROVIDERS: Internal Medicine; ADMIT Internal Medicine
DX: D46.4 Refractory anemia, unspecified (principal); D46.Z Other myelodysplastic syndromes; E11.9 Type 2 diabetes mellitus without complications; G14 Postpolio syndrome; Z79.84 Long term (current) use of oral hypoglycemic drugs
CPT/HCPCS: 36415; 36430; 80048; 80053; 81001; 82947; 83036; 85014; 85018; 85025; 85027; 86850; 86900; 86901; 86923; 87086; 87507; 93005; 93010; 96360; 96361; 97110; 97162; 97530; 99285-25; G0378; G8978; G8979; J1815; J7030; P9016

== ENCOUNTER 2018-06-19 00:34 | Day surgery (SDC) | payer OTHER ==
[2018-06-18 13:50] LABS: BASOPHILS ABSOLUTE AUTO 0.02 K/mm3 (0.00-0.23); BASOPHILS PERCENT AUTO 1 % (0-2); EOSINOPHILS ABSOLUTE AUTO 0.01 K/mm3 (0.00-0.68); EOSINOPHILS PERCENT AUTO 0 % (0-6); Hematocrit 22.4 % (33.0-51.0); Hemoglobin 7.3 g/dL (11.5-16.0); IMMATURE GRAN ABSOLUTE AUTO 0.07 K/mm3 (0.00-0.10); IMMATURE GRAN PERCENT AUTO 2 % (0-1); LYMPHOCYTES PERCENT AUTO 40 % (21-46); MONOCYTES ABSOLUTE AUTO 0.64 K/mm3 (0.16-1.47); MONOCYTES PERCENT AUTO 17 % (4-13); Mean Corpuscular HGB 30.5 pg (26.0-34.0); Mean Corpuscular HGB Conc 32.6 g/dL (31.5-36.5); Mean Corpuscular Volume 94 fL (80-100); NEUTROPHILS ABSOLUTE AUTO 1.53 K/mm3 (1.96-9.15); NEUTROPHILS PERCENT AUTO 41 % (41-73); RDW Coefficient Variation 14.3 % (11.7-14.2); RDW Standard Deviation 48.8 fL (35.1-46.3); Red Blood Cell Count 2.39 M/mm3 (3.80-5.20); White Blood Cell Count 3.77 K/mm3 (4.00-11.30)
[2018-06-18 13:55] LABS: Mean Platelet Volume 13.3 fL (9.1-12.4); Platelet Count 41 K/mm3 (150-400)
[~2018-06-19 00:34] MED LIST changes: +ACET325 PO
--- NOTE | 2018-06-19 16:05 | NUR ---
HYPOTENSION: NOTIFIED HOWIE DELGADO AT DR WHITE OFFICE RE PTS BP. SHE STS SHE WILL NOTIFY DR WHITE. SHE ALSO STS THAT PT WAS RUNING LOW WHEN SHE WAS SEEN TWO DAYS AGO AT DR WHITE OFFICE.
== END 2018-06-19 18:16 | disposition home or self-care (01) ==
LOC: ATC 00:34 → LAB 00:34 → ATC 14:00
DX: C94.6 Myelodysplastic disease, not elsewhere classified (principal); E11.9 Type 2 diabetes mellitus without complications; Z79.84 Long term (current) use of oral hypoglycemic drugs; G14 Postpolio syndrome
CPT/HCPCS: 36415; 36430; 85025; 86850; 86900; 86901; 86923; J7050; P9016

== ENCOUNTER 2018-07-06 17:21 | Day surgery (SDC) | payer OTHER ==
--- NOTE | 2018-07-06 21:00 | NUR ---
MULTIPLE IV ATTEMPTS WERE PERFORMED. IV ACCESS WAS OBTAINED 3 TIMES BUT SOON BLOOD RETURN WAS SEEN THE PT WOULD JERK HER ARM AWAY AND THE IV CATHETER WOULD NO LONGER BE IN THE VEIN. THE PT WAS EDUCATED AAND ASKED TO PLEASE NOT DO THIS EACH TIME BUT CONTINUED TO DO SO. AFTER 3 ATTEMPTS WITH SUCCESS AND THE PT PULLING AWAY ANOTHER NURSE WAS ASKED TO ATTEMPT.
--- NOTE | 2018-07-07 01:21 | NUR ---
PT D/C TO HOME AT THIS TIME WITH HER SON. PT TOLERATED BLOOD INFUSION WITH NO PROBLEMS. VSS. RESP UNLABORED. IV D/C WNL. PT ASSISTED TO PRIVATE VEHICLE VIA W/C.
== END 2018-07-07 01:30 | disposition home or self-care (01) ==
LOC: TRN 17:21 → SURS 17:22 → TRN 07-07 01:30
DX: C94.6 Myelodysplastic disease, not elsewhere classified (principal)
CPT/HCPCS: 36430; 86850; 86900; 86901; 86923; J7030; P9016

== ENCOUNTER 2018-07-17 07:39 | Day surgery (SDC) | payer OTHER ==
[2018-07-16 11:31] LABS: BASOPHILS ABSOLUTE AUTO 0.04 K/mm3 (0.00-0.23); BASOPHILS PERCENT AUTO 1 % (0-2); EOSINOPHILS ABSOLUTE AUTO 0.02 K/mm3 (0.00-0.68); EOSINOPHILS PERCENT AUTO 1 % (0-6); Hematocrit 22.7 % (33.0-51.0); Hemoglobin 7.1 g/dL (11.5-16.0); IMMATURE GRAN ABSOLUTE AUTO 0.18 K/mm3 (0.00-0.10); IMMATURE GRAN PERCENT AUTO 5 % (0-1); LYMPHOCYTES ABSOLUTE AUTO 1.11 K/mm3 (0.84-5.20); LYMPHOCYTES PERCENT AUTO 30 % (21-46); MONOCYTES ABSOLUTE AUTO 0.72 K/mm3 (0.16-1.47); MONOCYTES PERCENT AUTO 19 % (4-13); Mean Corpuscular HGB 29.7 pg (26.0-34.0); Mean Corpuscular HGB Conc 31.3 g/dL (31.5-36.5); Mean Corpuscular Volume 95 fL (80-100); NEUTROPHILS ABSOLUTE AUTO 1.67 K/mm3 (1.96-9.15); NEUTROPHILS PERCENT AUTO 45 % (41-73); RDW Coefficient Variation 16.1 % (11.7-14.2); RDW Standard Deviation 56.1 fL (35.1-46.3); Red Blood Cell Count 2.39 M/mm3 (3.80-5.20); White Blood Cell Count 3.74 K/mm3 (4.00-11.30)
[2018-07-16 11:47] LABS: Mean Platelet Volume 12.8 fL (9.1-12.4); Platelet Count 41 K/mm3 (150-400)
[2018-07-17] MEDS ORDERED: INSULANPEN (08:41)
--- NOTE | 2018-07-17 10:28 | NUR ---
TALKED PT INTO TALKING WITH PALLATIVE/SENIOR JAVA PROGRAMMER ANALYST RAHEL ESPOSITO TO SEE IF THEY CAN HELP HER WITH HER END OF LIFE CARE. THIS RN CAN TELL THE SON NARENDRA IS TIRED AND NEEDS HELP IN THE CARE OF HIS MOTHER. RAHEL ESPOSITO RN WILL BE COMING DOWN TO TALK WITH THEM
--- NOTE | 2018-07-17 12:37 | NUR ---
0815: COMPUTERS ARE DOWN. PAPER CHARTING STARTED. BLOOD VERIFIED WITH 2 RN AND COPY OF BLOOD TAG NOTED AND PLACED ON CHART. SEE PAPER OUTPT TX RECORD FOR BEGINNING OF 1ST UNIT OF BLOOD.
--- NOTE | 2018-07-17 14:00 | NUR ---
PC Note: Called to ATC room 5 to talk with pt and son per nursing request. Pt is well known to this travel writer from frequent visits (about every 3 weeks) to the [facility]C to receive blood products. She has had a decline in her functional status and is very weak. She is wheel chair bound, however she reports that she tries to do a little walking inside her home. She reports she is weak and she is afraid of falling. While in the ATC she uses the BSC and for safety reasons her son must stay with her when she comes to the [facility]. She reports she eats very little at home and appears to be losing weight. 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 She has been receiving regular blood transfusions in the [facility] for several years. She reports that "I have cancer, that's why I'm here." Her son Holland is present in the room with her and he appears quite fatigued. Jody states her son is her caregiver and he also works more than 40 hours per week at [employer]. Jody was to a [employer] member, however because she herself isn't a [employer] member she reports that she is unable to receive any benefits from the [employer]. Jody has no other family and reports that she does not have a network of friends. She states that Holland is the only person who is consistently in her life. She lives with him. When he works, she is home alone. Prior to today, Jody was most recently seen in the [facility] for blood products in June and was admitted to the hospital and discharged home with at the end of May 2018. She reports that she did not like all the people who called and came to her home from so she did not use the services. Jody and Holland both report that they would benefit from some extra help in the home. Jody reports her home is "a pig sty" as the entire three years that they lived in their current home she has been ill. She reports Holland is unable to keep up with housework, caring for Jody and working multimedia manager. Explained some of the community resources available for help in the home. Jody reports she will not have the state involved as she had a bad experience with [employer] in the past. Other options would be pay privately for a caregiver from an agency or contact the Aging and disability resource connection at [phone] for information about resources available in the area. Encouraged pt to contact local churches to see if they have programs who have volunteers that may be of help. Jody states she is not connected with any local mandaen and she doesn't have any friends who she can ask for help from. Pt's PCP is Dr. Daniels. She has been followed in the past by Dr. Hyde for her oncology needs, however according to a discharge summary written on 06/05/18 it appears that she fired Dr. Hyde. Spoke to Fabrice at Dr. Hyde's office. Fabrice reports pt did come and see Dr. Hyde as a follow up after her hosptialization in May. Per Fabrice, Dr. Hyde's progress note stated that there are no therapeutic options available for treatment and that supportive care (transfusions of blood products) are recommended. Discussed HH vs. Hospice as options for pt to receive additional help in her home. Asked her to consider quality of life and to think about at what point will she be willing to transition to hospice services. Pt and Holland again stated that they want help in the home, with ADL assistance and cleaning. Explained that neither HH or hospice would provide caregivers to clean their home. Also explained what services are available with HH and hospice. Jody would meet hospice criteria with her cancer history and no treatments are avialable at this time. After discussing hospice with her and answering questions, it appears that she isn't ready for hospice at this time. Her second request is to see if someone would be available to come and sit with her during her transfusions in the ATC so that her son would be able to care for himself and go to work without having to come to the ATC to sit with her. Explained that she could contact local churches to see if they have volunteer programs that might be able to assist with this need. Also offered the option of paying a private caregiver to come to [facility]C with her and possibly help with home cleaning and ADL care. Pt reports she isn't able to pay out of pocket for these services. She is also resistant to contacting [facility] for assistance due to a bad experience in the past. Explained that her choices are limiting the options of resources that are available to her. Her son would benefit from some additional support as he is showing signs of caregiver stress and fatigue. Pt has [employer] health insurance. Contacted [facility] to see if they can offer pt options for assistance. LM for them to return my call. Will also send PC notes from today's visit to Dr. Daniels so he will also have an update.
--- NOTE | 2018-07-17 17:41 | NUR ---
PC notes from today faxed to Dr. Daniels's office for review.
== END 2018-07-17 12:20 | disposition home or self-care (01) ==
LOC: ATC 07:39
DX: C94.6 Myelodysplastic disease, not elsewhere classified (principal); E11.9 Type 2 diabetes mellitus without complications
CPT/HCPCS: 36415; 36430; 85025; 86850; 86900; 86901; 86923; J7050; P9016

== ENCOUNTER 2018-08-03 09:49 | Day surgery (SDC) | payer OTHER ==
[~2018-08-03 09:49] MED LIST changes: +INSULANPEN
== END 2018-08-03 20:17 | disposition home or self-care (01) ==
LOC: ATC 09:49
DX: C94.6 Myelodysplastic disease, not elsewhere classified (principal)
CPT/HCPCS: 36415; 36430; 86850; 86900; 86901; 86923; J7050; P9016

== ENCOUNTER 2018-09-07 11:40 | Day surgery (SDC) | payer OTHER ==
[2018-09-07 11:19] LABS: Hematocrit 18.6 % (33.0-51.0); Mean Corpuscular HGB 29.6 pg (26.0-34.0); Mean Corpuscular HGB Conc 32.3 g/dL (31.5-36.5); Mean Corpuscular Volume 92 fL (80-100); NRBC ABSOLUTE 0.12 K/mm3 (0.00-0.02); NRBC Auto 0.9 /100 WBC (0.0-0.2); RDW Coefficient Variation 16.8 % (11.7-14.2); RDW Standard Deviation 55.6 fL (35.1-46.3); Red Blood Cell Count 2.03 M/mm3 (3.80-5.20); White Blood Cell Count 13.36 K/mm3 (4.00-11.30)
[2018-09-07 11:28] LABS: Mean Platelet Volume 13.4 fL (9.1-12.4); Platelet Count 41 K/mm3 (150-400)
[~2018-09-07 11:40] MED LIST changes: -INSULANPEN; +INSULANPEN SC
[2018-09-07 12:11] LABS: BAND PERCENT MAN 5 % (0-8); BASOPHILS PERCENT MAN 0 % (0-2); EOSINOPHILS PERCENT MAN 0 % (0-6); LYMPHOCYTES PERCENT MAN 27 % (21-46); METAMYELOCYTE ABSOLUTE MAN 0.13 K/mm3 (0.00-0.00); METAMYELOCYTE PERCENT MAN 1 % (0-0); MONOCYTES ABSOLUTE MAN 3.34 K/mm3 (0.16-1.47); MONOCYTES PERCENT MAN 25 % (4-13); NEUTROPHILS ABSOLUTE MAN 6.27 K/mm3 (1.96-9.15); SEG NEUTROPHILS PERCENT MAN 42 % (41-73); TOTAL CELLS COUNTED 100
== END 2018-09-07 17:00 | disposition home or self-care (01) ==
LOC: ATC 11:40 → LAB 11:40 → ATC 17:00 → LAB FUT 09-08 10:20 → EDSTATUS 09-08 10:20
DX: C94.6 Myelodysplastic disease, not elsewhere classified (principal); E11.65 Type 2 diabetes mellitus with hyperglycemia; E55.9 Vitamin D deficiency, unspecified; D47.3 Essential (hemorrhagic) thrombocythemia; Z88.2 Allergy status to sulfonamides; Z88.4 Allergy status to anesthetic agent
CPT/HCPCS: 36415; 36430; 85025; 86850; 86900; 86901; 86923; J7050; P9016

== ENCOUNTER 2018-09-21 00:39 | Day surgery (SDC) | payer OTHER ==
[2018-09-21] MEDS ORDERED: LO-DOSE ASPIRIN81 MG PO (08:09)
== END 2018-09-21 11:30 | disposition home or self-care (01) ==
LOC: ATC 00:39
DX: C94.6 Myelodysplastic disease, not elsewhere classified (principal); E11.9 Type 2 diabetes mellitus without complications; I10 Essential (primary) hypertension; E78.5 Hyperlipidemia, unspecified; Z79.84 Long term (current) use of oral hypoglycemic drugs; Z79.899 Other long term (current) drug therapy; Z88.2 Allergy status to sulfonamides; Z88.4 Allergy status to anesthetic agent
CPT/HCPCS: 36415; 86850; 86900; 86901; 86923; J7050; P9016

== ENCOUNTER 2018-09-28 15:30 | Observation (INO) | payer OTHER ==
[~2018-09-28] VITALS: Ht 157.5 cm; Wt 59.1 kg
[~2018-09-28 15:30] MED LIST changes: +LO-DOSE ASPIRIN81 MG PO; -METF500C PO
[2018-09-28 17:06] LABS: BASOPHILS ABSOLUTE AUTO 0.13 K/mm3 (0.00-0.23); BASOPHILS PERCENT AUTO 1 % (0-2); EOSINOPHILS ABSOLUTE AUTO 0.03 K/mm3 (0.00-0.68); EOSINOPHILS PERCENT AUTO 0 % (0-6); Hematocrit 25.8 % (33.0-51.0); Hemoglobin 8.2 g/dL (11.5-16.0); Mean Corpuscular HGB 29.6 pg (26.0-34.0); Mean Corpuscular HGB Conc 31.8 g/dL (31.5-36.5); NRBC ABSOLUTE 0.26 K/mm3 (0.00-0.02); NRBC Auto 1.7 /100 WBC (0.0-0.2); RDW Coefficient Variation 17.2 % (11.7-14.2); RDW Standard Deviation 57.5 fL (35.1-46.3); Red Blood Cell Count 2.77 M/mm3 (3.80-5.20); White Blood Cell Count 14.91 K/mm3 (4.00-11.30)
[2018-09-28 17:11] LABS: Mean Corpuscular Volume 93 fL (80-100)
[2018-09-28 17:12] LABS: IMMATURE GRAN ABSOLUTE AUTO 1.04 K/mm3 (0.00-0.10); IMMATURE GRAN PERCENT AUTO 7 % (0-1); LYMPHOCYTES ABSOLUTE AUTO 2.71 K/mm3 (0.84-5.20); LYMPHOCYTES PERCENT AUTO 18 % (21-46); MONOCYTES ABSOLUTE AUTO 7.29 K/mm3 (0.16-1.47); MONOCYTES PERCENT AUTO 49 % (4-13); NEUTROPHILS ABSOLUTE AUTO 3.71 K/mm3 (1.96-9.15); NEUTROPHILS PERCENT AUTO 25 % (41-73)
[2018-09-28 17:18] LABS: Platelet Count 15 K/mm3 (150-400)
[2018-09-28 17:27] LABS: Alanine Aminotransfer (ALT/SGP 137 U/L (12-78); Albumin, Blood 3.2 g/dL (3.4-5.0); Albumin/Globulin Ratio 0.8 (0.8-1.8); Alk Phos 226 U/L (50-136); Anion Gap 5 mmol/L (6-16); Aspartate Aminotrans (AST/SGOT 118 U/L (12-37); Bilirubin, Total 0.8 mg/dL (0.1-1.0); Blood Urea Nitrogen 8 mg/dL (8-24); Bun/Creatinine Ratio 22.8 (12.0-20.0); CO2, Blood 29 mmol/L (21-32); Calcium, Blood 8.3 mg/dL (8.5-10.1); Chloride, Blood 97 mmol/L (98-108); Creatinine, Blood 0.35 mg/dL (0.40-1.00); Glomerular Filtration Rate >60 (60-); Glucose, Blood 361 mg/dL (70-99); Potassium, Blood 4.9 mmol/L (3.5-5.5); Sodium, Blood 131 mmol/L (136-145); Total Protein, Blood 7.2 g/dL (6.4-8.2)
[2018-09-28 17:56] LABS: International Normalized Ratio 1.14; Prothrombin Time Results 11.9 Sec (9.7-11.5)
--- NOTE | 2018-09-29 03:57 | NUR ---
SHIFT SUMMARY 2039 RECEIVED PT TO RM 337 FROM ER. PT IS A&O, BUT VERY NEEDY. STANDS AND PIVOTS TO BSC AND BACK D/T HX OF POLIO. PT REPORTS THAT SHE USES A W/C TO GET AROUND MOST OF THE TIME. ADMITTED FOR THROMBOCYTOPENIA WITH HX OF MDS AND CRITICAL LOW PLATELETS. PER REPORT, PT USUALLY GETS PLATELETS EVERY 2 WEEKS; HER LAST UNIT GIVEN WAS LAST FRIDAY. PT TO HAVE U/S ON LIVER AND SPLEEN. IDDM WITH [facility] AT ADMIT 408. DR KRAUSE NOTIFIED. NO NEW ORDERS RECEIVED. SS INSULIN GIVEN PER EMAR. PT'S SON TO RM WITH PT, NOW SLEEPING AT BS. PT HAS CALLED FREQUENTLY ALL SHIFT; WANTING BLANKETS ON AND OFF AND SCD'S ADJUSTED EVERY FEW MINUTES. NO C/O PAIN. CALL LT IN REACH.
[2018-09-29 05:19] LABS: BASOPHILS ABSOLUTE AUTO 0.08 K/mm3 (0.00-0.23); BASOPHILS PERCENT AUTO 1 % (0-2); EOSINOPHILS ABSOLUTE AUTO 0.04 K/mm3 (0.00-0.68); EOSINOPHILS PERCENT AUTO 0 % (0-6); Hematocrit 21.1 % (33.0-51.0); Hemoglobin 6.7 g/dL (11.5-16.0); Mean Corpuscular HGB 29.3 pg (26.0-34.0); Mean Corpuscular HGB Conc 31.8 g/dL (31.5-36.5); Mean Corpuscular Volume 92 fL (80-100); NRBC Auto 1.6 /100 WBC (0.0-0.2); RDW Coefficient Variation 17.3 % (11.7-14.2); RDW Standard Deviation 56.5 fL (35.1-46.3); Red Blood Cell Count 2.29 M/mm3 (3.80-5.20); White Blood Cell Count 12.43 K/mm3 (4.00-11.30)
[2018-09-29 05:23] LABS: IMMATURE GRAN ABSOLUTE AUTO 0.99 K/mm3 (0.00-0.10); IMMATURE GRAN PERCENT AUTO 8 % (0-1); LYMPHOCYTES ABSOLUTE AUTO 3.31 K/mm3 (0.84-5.20); LYMPHOCYTES PERCENT AUTO 27 % (21-46); MONOCYTES ABSOLUTE AUTO 5.23 K/mm3 (0.16-1.47); MONOCYTES PERCENT AUTO 42 % (4-13); NEUTROPHILS ABSOLUTE AUTO 2.78 K/mm3 (1.96-9.15); NEUTROPHILS PERCENT AUTO 22 % (41-73)
[2018-09-29 05:25] LABS: Platelet Count 17 K/mm3 (150-400)
[2018-09-29 05:35] LABS: Alanine Aminotransfer (ALT/SGP 142 U/L (12-78); Albumin, Blood 2.8 g/dL (3.4-5.0); Albumin/Globulin Ratio 0.8 (0.8-1.8); Alk Phos 220 U/L (50-136); Anion Gap 1 mmol/L (6-16); Aspartate Aminotrans (AST/SGOT 143 U/L (12-37); Bilirubin, Total 0.5 mg/dL (0.1-1.0); Blood Urea Nitrogen 14 mg/dL (8-24); Bun/Creatinine Ratio 33.9 (12.0-20.0); CO2, Blood 34 mmol/L (21-32); Calcium, Blood 8.1 mg/dL (8.5-10.1); Chloride, Blood 98 mmol/L (98-108); Creatinine, Blood 0.41 mg/dL (0.40-1.00); Globulin, Blood 3.5 g/dL (2.2-4.0); Glomerular Filtration Rate >60 (60-); Glucose, Blood 385 mg/dL (70-99); Potassium, Blood 4.7 mmol/L (3.5-5.5); Sodium, Blood 133 mmol/L (136-145); Total Protein, Blood 6.3 g/dL (6.4-8.2)
[2018-09-29 16:10] LABS: Hematocrit 25.4 % (33.0-51.0); Hemoglobin 8.3 g/dL (11.5-16.0)
--- NOTE | 2018-09-29 16:51 | NUR ---
PATIENT DISCHARGE THE PATIENT WAS DISCHARGED HOME WITH HER SON, AFTER DISCHARGE INSTRUCTIONS WERE GIVEN TO THE PATIENT. THE PATIENT LEFT THE HOSPITAL WITHOUT CONCERN OR COMPLAINT.
== END 2018-09-29 16:53 | disposition home or self-care (01) ==
LOC: ER 15:30 → MEDS 15:31
PROVIDERS: Physician Assistant; ADMIT Internal Medicine
DX: D69.6 Thrombocytopenia, unspecified (principal); D61.818 Other pancytopenia; D46.4 Refractory anemia, unspecified; A80.9 Acute poliomyelitis, unspecified; E11.9 Type 2 diabetes mellitus without complications; R79.89 Other specified abnormal findings of blood chemistry; Z88.2 Allergy status to sulfonamides; Z79.82 Long term (current) use of aspirin; Z79.899 Other long term (current) drug therapy; Z79.4 Long term (current) use of insulin; Z88.4 Allergy status to anesthetic agent
CPT/HCPCS: 36415; 76700; 80053; 82947; 85014; 85018; 85025; 85610; 85730; 86850; 86900; 86901; 86923; 99284; J7050; P9016; P9035

== ENCOUNTER 2018-10-02 00:05 | Day surgery (SDC) | payer OTHER ==
[2018-10-01 10:48] LABS: Hematocrit 27.8 % (33.0-51.0); Mean Corpuscular HGB 29.6 pg (26.0-34.0); Mean Corpuscular HGB Conc 32.4 g/dL (31.5-36.5); Mean Corpuscular Volume 91 fL (80-100); NRBC ABSOLUTE 0.22 K/mm3 (0.00-0.02); NRBC Auto 1.1 /100 WBC (0.0-0.2); RDW Coefficient Variation 17.1 % (11.7-14.2); RDW Standard Deviation 54.5 fL (35.1-46.3); Red Blood Cell Count 3.04 M/mm3 (3.80-5.20); White Blood Cell Count 19.83 K/mm3 (4.00-11.30)
[2018-10-01 10:57] LABS: Platelet Count 15 K/mm3 (150-400)
[2018-10-01 11:37] LABS: BAND PERCENT MAN 2 % (0-8); BASOPHILS PERCENT MAN 0 % (0-2); EOSINOPHILS PERCENT MAN 0 % (0-6); LYMPHOCYTES ABSOLUTE MAN 2.97 K/mm3 (0.84-5.20); LYMPHOCYTES PERCENT MAN 15 % (21-46); MONOCYTES ABSOLUTE MAN 9.91 K/mm3 (0.16-1.47); MONOCYTES PERCENT MAN 50 % (4-13); NEUTROPHILS ABSOLUTE MAN 6.94 K/mm3 (1.96-9.15); SEG NEUTROPHILS PERCENT MAN 33 % (41-73); TOTAL CELLS COUNTED 100
== END 2018-10-02 09:15 | disposition home or self-care (01) ==
LOC: ATC 00:05 → LAB 00:05 → ATC 09:15 → LAB FUT 10-01 15:35 → EDSTATUS 10-01 15:35
DX: C94.6 Myelodysplastic disease, not elsewhere classified (principal)
CPT/HCPCS: 36415; 36430; 85025; 86900; 86901; J7050; P9035

== ENCOUNTER 2018-10-06 00:25 | Day surgery (SDC) | payer OTHER ==
[2018-10-05 10:49] LABS: Hematocrit 27.4 % (33.0-51.0); Hemoglobin 8.6 g/dL (11.5-16.0); Mean Corpuscular HGB 29.6 pg (26.0-34.0); Mean Corpuscular HGB Conc 31.4 g/dL (31.5-36.5); NRBC ABSOLUTE 0.34 K/mm3 (0.00-0.02); NRBC Auto 1.5 /100 WBC (0.0-0.2); RDW Coefficient Variation 17.2 % (11.7-14.2); RDW Standard Deviation 57.2 fL (35.1-46.3); Red Blood Cell Count 2.91 M/mm3 (3.80-5.20); White Blood Cell Count 22.86 K/mm3 (4.00-11.30)
[2018-10-05 11:02] LABS: Mean Corpuscular Volume 94 fL (80-100)
[2018-10-05 11:03] LABS: Platelet Count 11 K/mm3 (150-400)
[2018-10-05 11:23] LABS: BAND PERCENT MAN 4 % (0-8); BASOPHILS PERCENT MAN 0 % (0-2); BLASTS PERCENT MAN 1 % (0-0); EOSINOPHILS PERCENT MAN 0 % (0-6); LYMPHOCYTES ABSOLUTE MAN 3.88 K/mm3 (0.84-5.20); LYMPHOCYTES PERCENT MAN 17 % (21-46); METAMYELOCYTE ABSOLUTE MAN 0.22 K/mm3 (0.00-0.00); METAMYELOCYTE PERCENT MAN 1 % (0-0); MONOCYTES PERCENT MAN 49 % (4-13); MYELOCYTE ABSOLUTE MAN 0.22 K/mm3 (0.00-0.00); MYELOCYTE PERCENT MAN 1 % (0-0); NEUTROPHILS ABSOLUTE MAN 7.08 K/mm3 (1.96-9.15); SEG NEUTROPHILS PERCENT MAN 27 % (41-73); TOTAL CELLS COUNTED 100
[2018-10-06] MEDS ORDERED: TYLENOL PM EX-1 EAC1 PO (08:10)
--- NOTE | 2018-10-06 08:17 | NUR ---
ATTEMPT X2 R HAND AND L AC. NOT ABLE TO FLUSH
== END 2018-10-06 09:15 | disposition home or self-care (01) ==
LOC: LAB 00:25 → ATC 00:25
DX: D46.1 Refractory anemia with ring sideroblasts (principal); D69.59 Other secondary thrombocytopenia; E11.65 Type 2 diabetes mellitus with hyperglycemia; I10 Essential (primary) hypertension; E78.5 Hyperlipidemia, unspecified; Z79.84 Long term (current) use of oral hypoglycemic drugs; Z79.899 Other long term (current) drug therapy; Z88.2 Allergy status to sulfonamides; Z88.4 Allergy status to anesthetic agent; Z88.8 Allergy status to other drugs, medicaments and biological substances
CPT/HCPCS: 36415; 36430; 85025; 86900; 86901; J7050; P9035

== ENCOUNTER 2018-10-08 12:01 | Day surgery (SDC) | payer OTHER ==
[2018-10-08 10:40] LABS: BASOPHILS ABSOLUTE AUTO 0.13 K/mm3 (0.00-0.23); BASOPHILS PERCENT AUTO 1 % (0-2); Hematocrit 25.1 % (33.0-51.0); Hemoglobin 7.9 g/dL (11.5-16.0); Mean Corpuscular HGB 29.8 pg (26.0-34.0); Mean Corpuscular HGB Conc 31.5 g/dL (31.5-36.5); Mean Corpuscular Volume 95 fL (80-100); NRBC ABSOLUTE 0.27 K/mm3 (0.00-0.02); NRBC Auto 1.3 /100 WBC (0.0-0.2); RDW Coefficient Variation 17.1 % (11.7-14.2); RDW Standard Deviation 56.7 fL (35.1-46.3); Red Blood Cell Count 2.65 M/mm3 (3.80-5.20); White Blood Cell Count 21.07 K/mm3 (4.00-11.30)
[2018-10-08 10:42] LABS: EOSINOPHILS ABSOLUTE AUTO 0.05 K/mm3 (0.00-0.68); EOSINOPHILS PERCENT AUTO 0 % (0-6); IMMATURE GRAN ABSOLUTE AUTO 1.46 K/mm3 (0.00-0.10); IMMATURE GRAN PERCENT AUTO 7 % (0-1); LYMPHOCYTES ABSOLUTE AUTO 3.92 K/mm3 (0.84-5.20); LYMPHOCYTES PERCENT AUTO 19 % (21-46); MONOCYTES ABSOLUTE AUTO 10.65 K/mm3 (0.16-1.47); MONOCYTES PERCENT AUTO 51 % (4-13); NEUTROPHILS ABSOLUTE AUTO 4.86 K/mm3 (1.96-9.15); NEUTROPHILS PERCENT AUTO 23 % (41-73)
[2018-10-08 10:44] LABS: Platelet Count 8 K/mm3 (150-400)
[~2018-10-08 12:01] MED LIST changes: +TYLENOL PM EX-1 EAC1 PO
--- NOTE | 2018-10-08 16:27 | NUR ---
Called to meet with pt and son by infusion nurse. Pt is not seeing Dr. Hyde for treatment anymore and is refusing hospice. Son is very fatigued and distressed by trying to care for her and work and have a relationship. Pt has to have son with her at [facility] for safety. Next visit will see if we can get sitter and get him some repite and chaplian visit. Reviewed hospice care with son and patient. pt interupted frequently. She is fixated n her house not being the way she likes it and her son has not cleaned. She avoids conversation of care needs. She expressed naman she does not want to leave her son and is critical of his life. Review of patient with son alone asked if she is forget full or repeats frequently like she is doing now. Son states it is the stress of the situation. He states he is sleeping ok. We reviewed caregiver stress. and loss of relationship, review of online resources and advised him to hire a machine set up operator and set a time boundary. Review of patient with nursing and plan is for us to update Dr. Daniels on plan of . Advised son to speak with brenda Daniels. He had many questions about hospice. His issue is 24 hour care, reviewed what hopice does and startegies of primary care pediatrician support.
== END 2018-10-08 18:13 | disposition home or self-care (01) ==
LOC: LAB 12:01 → ATC 12:01 → EDSTATUS 12:02 → ATC 18:13
DX: D46.1 Refractory anemia with ring sideroblasts (principal); D69.59 Other secondary thrombocytopenia; I10 Essential (primary) hypertension; E11.9 Type 2 diabetes mellitus without complications; E55.9 Vitamin D deficiency, unspecified; E78.5 Hyperlipidemia, unspecified; Z79.899 Other long term (current) drug therapy; Z79.4 Long term (current) use of insulin; Z88.2 Allergy status to sulfonamides; Z88.8 Allergy status to other drugs, medicaments and biological substances
CPT/HCPCS: 36415; 36430; 85025; 86850; 86900; 86901; 86923; J7050; P9016; P9035

== ENCOUNTER 2018-10-13 11:36 | Day surgery (SDC) | payer OTHER ==
[2018-10-13 08:11] LABS: Hematocrit 28.2 % (33.0-51.0); Hemoglobin 9.1 g/dL (11.5-16.0); Mean Corpuscular HGB 29.4 pg (26.0-34.0); Mean Corpuscular HGB Conc 32.3 g/dL (31.5-36.5); Mean Corpuscular Volume 91 fL (80-100); NRBC ABSOLUTE 0.24 K/mm3 (0.00-0.02); NRBC Auto 1.5 /100 WBC (0.0-0.2); RDW Coefficient Variation 16.6 % (11.7-14.2); RDW Standard Deviation 52.5 fL (35.1-46.3); Red Blood Cell Count 3.09 M/mm3 (3.80-5.20); White Blood Cell Count 16.17 K/mm3 (4.00-11.30)
[2018-10-13 08:25] LABS: Platelet Count 4 K/mm3 (150-400)
[2018-10-13 08:58] LABS: BASOPHILS PERCENT MAN 0 % (0-2); BLASTS PERCENT MAN 1 % (0-0); EOSINOPHILS ABSOLUTE MAN 0.16 K/mm3 (0.00-0.68); EOSINOPHILS PERCENT MAN 1 % (0-6); LYMPHOCYTES % ATYPICAL MANUAL 2 % (0-0); LYMPHOCYTES ABSOLUTE MAN 4.04 K/mm3 (0.84-5.20); LYMPHOCYTES PERCENT MAN 23 % (21-46); MONOCYTES ABSOLUTE MAN 6.95 K/mm3 (0.16-1.47); NEUTROPHILS ABSOLUTE MAN 4.85 K/mm3 (1.96-9.15); SEG NEUTROPHILS PERCENT MAN 30 % (41-73); TOTAL CELLS COUNTED 100
[2018-10-13 09:02] LABS: MONOCYTES PERCENT MAN 43 % (4-13)
[2018-10-13 16:21] LABS: Platelet Count 3 K/mm3 (150-400)
== END 2018-10-13 23:03 | disposition home or self-care (01) ==
LOC: ATC 11:36 → LAB 11:36 → EDSTATUS 11:37 → ATC 23:03
DX: D46.1 Refractory anemia with ring sideroblasts (principal); D69.59 Other secondary thrombocytopenia; I10 Essential (primary) hypertension; E78.5 Hyperlipidemia, unspecified; E11.9 Type 2 diabetes mellitus without complications; Z88.2 Allergy status to sulfonamides; Z88.4 Allergy status to anesthetic agent
CPT/HCPCS: 36415; 36430; 85025; 85049; 86900; 86901; J7050; P9035